=== PATIENT | female | born 1950 | race Caucasian/White ===

== ENCOUNTER 2019-06-04 08:30 | Emergency (ER) | payer MEDICARE, SELFPAY ==
--- NOTE | ~2019-06-04 | XR_ITS ---
XR chest 2V DATE: 06/04/2019 08:58 INDICATION: Dyspnea TECHNIQUE: PA and lateral views COMPARISON: 09/27/2018 2 view chest FINDINGS: Bilateral hyperinflation. No pulmonary infiltrate or consolidation, pleural effusion or pul monary vascular congestion or pneumothorax is detected. Normal heart size. Aortic calcification. No h ilar or mediastinal enlargement. Diffuse osteopenia. IMPRESSION: No active cardiopulmonary disease Reviewed, dictated and finalized at location A. MOTION ANALYST
[2019-06-04 08:33] VITALS: BP 151/109; PULSE 76; RESP 18; TEMP 36.3; O2SAT 100
--- NOTE | 2019-06-04 08:33 | ECG_ITS ---
Measurements Intervals [place] Rate: 72 P: 59 NH: 165 QRS: 27 QRSD: 93 T: 41 QT: 405 QTc: 444 Interpretive Statements SINUS RHYTHM NORMAL ECG Electronically Signed On 06-04-2019 11:24:58 [employer] by Fredy Adhikari D.O.
--- NOTE | 2019-06-04 08:35 | ED.DIZZY ---
HPI - Dizziness General Chief Complaint: Dizziness Stated Complaint: cant breath, im dizzy Time Seen by Provider: 06/04/19 08:35 Source: patient Mode of arrival: ambulatory Limitations: no limitations History of Present Illness HPI Narrative: A 69 y/o female presents to the ED with c/o dizziness. Pt states that at 0300 the dizziness woke her up and has been constant since. Pt adds that she is also SOB and is not getting blood flow to her head. She describes the dizziness as a lightheadedness and near-syncope, but denies a spinning sensation. Pt does not note any aggravating or alleviating factors for the dizziness. Pt reports intermittent cough, anxiety, and night sweats, but denies CP, fever, BLE edema, N/V, and chills. She states that she is panicky due to the SOB. Pt notes the SOB is aggravated when she is lying down flat. She has a PMHx of anxiety and takes Paxil daily. Pt denies any sick contacts or any recent car or air travel. Dr. Fernández is her PCP. She has a PMHx of hyperlipidemia, GERD, and section. MD elicited complaint: dizziness Pertinent past history: other (Anxiety) Onset (ago): hour(s) (5.5) Timing: awoke with symptoms Description: lightheadedness and near-syncope Exacerbating factors: nothing Relieving factors: nothing Associated symptoms: shortness of breath and other (Intermittent cough, anxiety, night sweats) Related Data Home Medications Medication Instructions Recorded Confirmed atenolol 100 mg tablet 100 mg PO DAILY tablet 03/07/19 atorvastatin 80 mg tablet 80 mg PO DAILY tablet 03/07/19 paroxetine HCl 20 mg tablet mg PO 03/07/19 Allergies Allergy/AdvReac Type Severity Reaction Status Date / Time No Known Allergies Allergy Verified 06/04/19 08:35 Review of Systems Review of Systems: All systems reviewed & are unremarkable except as noted in HPI and below Constitutional: Constitutional: Denies chills, Denies fever(s) and Reports night sweats Cardiovascular: Cardiovascular: Denies chest pain and Denies leg edema Respiratory: Respiratory: Reports cough (Intermittent) and Reports dyspnea Gastrointestinal: Gastrointestinal: Denies nausea and Denies vomiting Neurologic: Reports dizziness Psychiatric: Psychiatric: Reports anxiety PMFSH Past Medical History Medical History (Updated 06/04/19 @ 11:38 by Bruna Oleary MD) Anxiety GERD (gastroesophageal reflux disease) HTN (hypertension) Hyperlipidemia Verruca vulgaris right forearm Surgical History Surgical History (Updated 06/04/19 @ 08:43 by Latisha Rabago) History of section Family History Family History Father Cerebrovascular accident Mother Family history of chronic obstructive pulmonary disease Sibling Patient's sister is Social History Social History Smoking status: Never smoker Second hand tobacco smoke exposure: Yes Alcohol intake: current Gender identity (if verbalized by the patient): Female Exam Const: General: cooperative, no acute distress and alert Nutritional Appearance: well nourished Orientation/consciousness: patient oriented x3 Limitations: no limitations HENMT: Mouth: Yes lip normal and Yes moist mucous membranes Resp: Effort & Inspection: normal respiratory effort Auscultation: clear to auscultation bilaterally Cardio: Rate: regular rate Rhythm: regular rhythm Heart sounds: no murmurs Peripheral pulses: dorsalis pedis present bilateral 2+ GI: GI Palp: Yes Soft to palpation and No Tenderness to palpation present (GI) Auscultation: normal bowel sounds Skin: General skin exam: normal color Neuro: General: patient oriented x3 Cognition (Neuro): normal cognition Speech: normal speech Extrem: General: normal to inspection, full ROM and no clubbing, cyanosis or edema Psych: Mental Status: mental status grossly normal Affect: Anxious aff
[2019-06-04] MEDS: LORAZEPAM INJ 2 MG/ML VIAL 1 MG IV PUSH (08:53)
[2019-06-04 09:03] VITALS: BP 163/76; PULSE 68; RESP 18; O2SAT 95
[2019-06-04 09:08] LABS: Basophils Absolute Auto 0.1 K/mm3 (0.0-0.1); Basophils Percent Auto 0.6 % (0.2-1.2); Eosinophils Absolute Auto 0.7 K/mm3 (0-0.3); Eosinophils Percent Auto 8.1 % (0-4.4); Hemoglobin 13.5 g/dL (12.0-15.0); Immature Granulocyte Absolute 0.02 K/mm3 (0.00-0.031); Immature Granulocyte Percent A 0.2 % (0-0.5); Lymphocytes Absolute Auto 2.88 K/mm3 (0.9-3.2); Lymphocytes Percent Auto 35.7 % (18.3-44.2); Mean Corpuscular HGB Conc 32.1 g/dl (32-36); Mean Corpuscular Hemoglobin 27.7 pg (26-34); Mean Corpuscular Volume 86.2 fl (80-100); Mean Platelet Volume 11.3 fl (7.4-10.4); Monocytes Absolute Auto 0.7 K/mm3 (0.1-0.6); Monocytes Percent Auto 8.7 % (2.6-8.5); Neutrophils Absolute Auto 3.8 K/mm3 (1.3-6.7); Neutrophils Percent Auto 46.7 % (45.5-73.1); Platelet Count Result 218 k/mm3 (150-375); Red Blood Count 4.87 M/mm3 (4.2-5.4); Red Cell Distribution Width 14.4 % (11.5-14.5); White Blood Count 8.1 K/mm3 (4.5-10.0)
[2019-06-04 09:18] LABS: D Dimer 0.32 ug/mL (<0.48)
[2019-06-04 09:26] VITALS: BP 138/83; PULSE 68; RESP 18; O2SAT 95
[2019-06-04 09:36] LABS: Alanine Aminotransferase 24 U/L (4-35); Albumin Level 4.8 g/dL (3.5-5.1); Alkaline Phosphatase 116 U/L (38-126); Aspartate Amino Transferase 29 U/L (14-36); Bilirubin,Total 0.7 mg/dL (0.2-1.3); Blood Urea Nitrogen 18 mg/dL (7-17); Calcium 9.7 mg/dL (8.4-10.2); Carbon Dioxide 26 mmol/L (22-30); Chloride 100 mmol/L (98-107); Estimated CRCL calculation 76 ml/min; Estimated Glomerular Filt Rate > 60; Glucose 94 mg/dL (65-105); Potassium 3.9 mmol/L (3.4-5.0); Sodium 141 mmol/L (137-145)
[2019-06-04 09:45] LABS: NT Pro B Type Natriuretic Pept 239 PG/ML (5-100); Troponin I < 0.012 ng/mL (0.000-0.034)
[2019-06-04 10:11] VITALS: BP 149/92; PULSE 63; RESP 18; O2SAT 98
== END 2019-06-04 11:45 | disposition home or self-care (01) ==
PROVIDERS: Emergency Provider Emergency Medicine; PCP Internal Medicine
DX: F41.9 Anxiety disorder, unspecified (principal); K21.9 Gastro-esophageal reflux disease without esophagitis; E78.5 Hyperlipidemia, unspecified; I10 Essential (primary) hypertension
CPT/HCPCS: 36415; 71046; 80053; 83880; 84484; 85025; 85380; 93005; 96374; 99284; J2060

== ENCOUNTER 2019-11-29 14:48 | Outpatient (CLI) | payer MEDICARE, SELFPAY ==
--- NOTE | ~2019-11-29 | MM_ITS ---
EXAMINATION: MM screening [place] BI w mitra HISTORY: Screening TECHNIQUE: Craniocaudal and mediolateral oblique 3-D tomosynthesis images were obtained and synthetic 2-D images were generated. CAD analysis was submitted and interpreted. COMPARISON: Comparison to multiple prior studies sequentially, with oldest reviewed study dated 08/2013. BREAST PARENCHYMAL COMPOSITION: There are scattered areas of fibroglandular density. FINDINGS: There is no evidence of suspicious mass, calcification, or architectural distortion to sugg est malignancy in either breast. There has been no suspicious interval change. IMPRESSION: 1. No mammographic evidence of malignancy. 2. Recommend routine screening mammography in one year. BI-RADS Category 1: Negative Reviewed, dictated and finalized at location A.
== END 2019-11-29 14:49 | disposition home or self-care (01) ==
PROVIDERS: PCP Internal Medicine; Visit Provider Obstetrics & Gynecology
DX: Z12.31 Encounter for screening mammogram for malignant neoplasm of breast (principal)
CPT/HCPCS: 77063; 77067

== ENCOUNTER 2020-02-07 08:53 | Outpatient (CLI) | payer MEDICARE, SELFPAY ==
--- NOTE | 2020-03-11 11:57 | WPDHOMESLEEP ---
Sleep Study - Home Unattended Date of Study: 02/07/20 Ordering Provider: Brayden Ott PA-C Interpreting Physician: Janet Menchaca MD Home Sleep Study Type: Apnea Link Air Height: 1.65 m Weight: 79.379 kg Body Mass Index: 29.1 [place]: 10 Reason for Sleep Study Hypersomnia Sleep History Rose Mary Mitchell is a 69 yo female with loud snoring, witnessed apneas and poor quality sleep. She frequently snores loudly enough that others complain about it. She does not awaken at night with heartburn, belching or coughing. She occasionally awakens from sleep feeling short of breath. She frequently has trouble sleeping with a cold, frequently wakes up gasping for breath at night constantly has breathing problems reported to her by others. She frequently sweats excessively at night. She frequently notices her heart pounding or beating irregularly at night and she frequently falls asleep during the day, occasionally involuntarily occasionally while driving. She does not have daytime difficulties due to excessive sleepiness. She does not feel paralyzed on waking or falling asleep and does not have vivid dreamlike scenes upon awakening or falling asleep. She is never afraid to go to sleep. She rarely has nightmares. She frequently remembers her dreams. She does not have racing thoughts, feelings of sadness or depression. She frequently feels anxiety. She does not have muscular tension. She occasionally notices parts of her body jerking. She does not kick at night, does not have crawling or aching feelings in her legs or leg pain during the night. She denies morning jaw pain. She does not grind her teeth during sleep. She occasionally has bothered by pain during the day. She is not awakened by pain at night or does not wake up feeling stiff in the morning with sore achy muscles are pain in the neck and spine joints. She has fatigue, headaches, and says that it is difficult for her to relax. She goes to bed at 12 midnight taking 2-3 hours to fall asleep, typically waking twice at night. She tries to go back to sleep but sometimes it is difficult For her to return to sleep again. She wakes up at 9:00 a.m. Weekend schedule is the same. She does take naps. Short naps are not refreshing. She is drowsy in the morning for 2 hours or longer. She feels better in the evening compared other times of day. Habits: never smoked tobacco. She uses caffeine and drinks alcohol, 3 Margaritas, on Fridays. No recreational drugs. She did not give numerical responses for the [place], however answered yes to 5 out of 8 questions; this translates to 10 ESS. [facility] Past Medical History Medical History (Updated 03/11/20 @ 12:19 by Janet Menchaca MD) Anxiety GERD (gastroesophageal reflux disease) HTN (hypertension) Hyperlipidemia Verruca vulgaris right forearm Surgical History Surgical History History of section Family History Family History Father Cerebrovascular accident Mother Family history of chronic obstructive pulmonary disease Sibling Patient's sister is Social History Social History Smoking status: Never smoker Second hand tobacco smoke exposure: No Alcohol intake: current Substance use: never Gender identity (if verbalized by the patient): Female Medications Home Medications Medication Instructions Recorded Confirmed Type atenolol 100 mg tablet 100 mg PO DAILY #90 tablet 02/14/20 02/14/20 Rx atorvastatin 80 mg tablet 80 mg PO DAILY #90 tablet 02/14/20 02/14/20 Rx lorazepam 0.5 mg tablet 0.5 mg PO BID PRN #30 tablet 02/14/20 02/14/20 Rx omeprazole 20 mg capsule,delayed 20 mg PO DAILY #90 cap 02/14/20 02/14/20 Rx release paroxetine HCl 40 mg tablet 40 mg PO DAILY #90 tablet 02/14/20 02/14/20 Rx Sleep Procedure T
[2020-03-11 12:12] VITALS: BMI 29.1
== END 2020-02-07 08:54 | disposition home or self-care (01) ==
LOC: ANHCSM 08:57
PROVIDERS: PCP Internal Medicine; Visit Provider Physician Assistant
DX: R06.00 Dyspnea, unspecified (principal); I10 Essential (primary) hypertension; E78.5 Hyperlipidemia, unspecified; K21.9 Gastro-esophageal reflux disease without esophagitis; R53.83 Other fatigue
CPT/HCPCS: 95806

== ENCOUNTER 2020-04-12 02:00 | Outpatient (CLI) | payer MEDICARE, SELFPAY ==
[2020-04-12 20:00] LABS: SARS-CoV-2 RNA PCR Negative
== END 2020-04-12 02:01 | disposition home or self-care (01) ==
LOC: ANHCOVIDDT 02:00
PROVIDERS: PCP Internal Medicine; Visit Provider Internal Medicine Critical Care Medicine
DX: Z01.812 Encounter for preprocedural laboratory examination (principal); Z20.828 Contact with and (suspected) exposure to other viral communicable diseases
CPT/HCPCS: 87635; C9803; U0003

== ENCOUNTER 2021-02-06 10:34 | Outpatient (CLI) | payer MEDICARE, SELFPAY ==
--- NOTE | ~2021-02-06 | XR_ITS ---
XR chest 2V DATE: 02/06/2021 10:54 INDICATION: Dyspnea for one year. History of hypertension. TECHNIQUE: PA and lateral views COMPARISON: June 04, 2019 PA and lateral chest FINDINGS: Normal heart size. Aortic calcification and mild unfolding. No hilar or mediastinal enlarge ment. No pulmonary infiltrate or consolidation, pleural effusion or pulmonary vascular congestion or pneumo thorax is detected. Diffuse osteopenia. Mild degenerative change of the thoracic spine. IMPRESSION: No active cardiopulmonary disease Aortic atherosclerosis Osteopenia Reviewed, dictated and finalized at location B.
== END 2021-02-06 10:35 | disposition home or self-care (01) ==
LOC: ANHIMG 10:38
PROVIDERS: PCP Internal Medicine; Visit Provider Internal Medicine Critical Care Medicine
DX: R06.00 Dyspnea, unspecified (principal); I70.0 Atherosclerosis of aorta; M47.814 Spondylosis without myelopathy or radiculopathy, thoracic region
CPT/HCPCS: 71046

== ENCOUNTER 2021-07-25 14:29 | Outpatient (CLI) | payer MEDICARE, SELFPAY ==
--- NOTE | ~2021-07-25 | CT_ITS ---
EXAMINATION: CT brain wo con EXAM DATE: 07/25/2021 15:04 INDICATION: Alzheimer's . TECHNIQUE: Spiral CT of the head was performed without contrast. Axial, coronal and sagittal images were reviewed. The dose-length product (DLP) for this examination was 605.33 mGy-cm. The exposure w as tailored according to patient size, and iterative reconstruction (ASIR) was used as additional dos e reduction technique. There is no prior study for comparison. FINDINGS: There is no acute intraparenchymal hemorrhage. No evidence of intraparenchymal brain mass lesion. No evidence of acute infarction. There is no mass effect or midline shift. Mild microangiop athy and cerebral atrophy. The ventricles are normal in size. There are no extra-axial collections. There are no acute calvarial fractures. The orbits are unremarkable. Soft tissue is unremarkable. The visualized sinuses and mastoid air cells are well aerated. IMPRESSION: Mild age-related findings. Reviewed, dictated and finalized at location B. IMPRESSION: Mild age-related findings.
== END 2021-07-25 14:30 | disposition home or self-care (01) ==
PROVIDERS: PCP Internal Medicine
DX: G30.0 Alzheimer's disease with early onset (principal)
CPT/HCPCS: 70450

== ENCOUNTER 2024-04-03 10:20 | Observation (INO) | payer MEDICARE, SELFPAY ==
--- NOTE | ~2024-04-03 | CT_ITS ---
CT brain wo con Ordering provider: Keegan Cordova MD History: 74 years Female with . AMS . Comparison: July 25, 2021 Technique: CT of the head without contrast. Radiation reduction technique utilized.The dose-length pr oduct was 605.33 mGy-cm. FINDINGS: BRAIN PARENCHYMA AND CSF SPACES: Mild leukoaraiosis and diffuse cortical atrophy. Mild atheromatous d isease. No midline shift, mass effect or hemorrhage. The brain parenchyma and CSF spaces are otherwi se normal. VISUALIZED PARANASAL SINUSES: Well aerated. MASTOIDS: Well aerated. BONES: The bones appear intact. SOFT TISSUES: Visualized nasopharynx is normal. Superficial soft tissues are normal. IMPRESSION: No acute intracranial findings. Reviewed, dictated and finalized at location A. ECT SAFETY MANAGER
[2024-04-03 10:19] VITALS: BP 137/70; PULSE 65; RESP 12; TEMP 36.4; O2SAT 98
[2024-04-03 10:53] LABS: Basophils Percent Auto 0.5 % (0.2-1.2); Eosinophils Absolute Auto 0.6 K/mm3 (0-0.3); Eosinophils Percent Auto 9.1 % (0-4.4); Hematocrit 37.8 % (37.0-47.0); Hemoglobin 11.9 g/dL (12.0-15.0); Immature Granulocyte Absolute 0.02 K/mm3 (0.00-0.031); Immature Granulocyte Percent A 0.3 % (0-0.5); Lymphocytes Absolute Auto 1.21 K/mm3 (0.9-3.2); Lymphocytes Percent Auto 19.7 % (18.3-44.2); Mean Corpuscular HGB Conc 31.5 g/dl (32-36); Mean Corpuscular Hemoglobin 27.4 pg (26-34); Mean Corpuscular Volume 86.9 fl (80-100); Mean Platelet Volume 10.8 fl (7.4-10.4); Monocytes Absolute Auto 0.5 K/mm3 (0.1-0.6); Monocytes Percent Auto 7.3 % (2.6-8.5); Neutrophils Absolute Auto 3.9 K/mm3 (1.3-6.7); Neutrophils Percent Auto 63.1 % (45.5-73.1); Platelet Count Result 187 k/mm3 (150-375); Red Blood Count 4.35 M/mm3 (4.2-5.4); Red Cell Distribution Width 15.5 % (11.5-14.5); White Blood Count 6.2 K/mm3 (4.5-10.0)
[2024-04-03 11:03] LABS: Alanine Aminotransferase 14 U/L (6-35); Albumin Level 3.9 g/dL (3.5-5.1); Alkaline Phosphatase 118 U/L (38-126); Anion Gap 6 mmol/L (4-12); Aspartate Amino Transferase 21 U/L (14-36); Bilirubin,Total 0.7 mg/dL (0.2-1.3); Blood Urea Nitrogen 20 mg/dL (7-17); Calcium 9.1 mg/dL (8.4-10.2); Carbon Dioxide 27 mmol/L (22-30); Chloride 106 mmol/L (98-107); Estimated CRCL calculation 46 ml/min; Estimated Glomerular Filt Rate > 60; Glucose 91 mg/dL (65-110); Potassium 3.4 mmol/L (3.4-5.0); Sodium 139 mmol/L (137-145)
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
[2024-04-03 11:24] VITALS: BP 160/82; PULSE 81; RESP 18; O2SAT 97
[2024-04-03 11:31] LABS: Add Urine Microscopic? YES; Appearance Urine Clear (Clear); Bacteria Urine 4+ /hpf; Bilirubin Urine Negative (Negative); Blood Urine Negative (Negative); Color Urine Yellow (Yellow); Glucose Urine UA Negative (Negative); Ketones Urine Trace mg/dL (Negative); Leukocyte Esterase Ur Negative LEU/UL (Negative); Nitrate Urine Positive (Negative); Non Pathogenic Casts 0-2; Protein Urine Negative (Negative); RBC Urine 0-2 /hpf (0-2); Specific Grav Ur 1.016 (1.001-1.035); Squamous Epithelial Cell Urine None Seen /hpf (Few); WBC Urine 0-5 /hpf (0-3); pH Urine 6.5 (5.0-9.0)
[2024-04-03] MEDS: LORazepam INJ (*CRX) 2 MG/ML VIAL 0.5 MG IV PUSH ×4 (11:42→20:00)
[2024-04-03 11:45] VITALS: BP 163/80; PULSE 73; RESP 13; O2SAT 98
[2024-04-03 13:09] VITALS: BP 158/82; PULSE 90; RESP 13; O2SAT 99
--- NOTE | 2024-04-03 14:15 | PC.NURSE ---
Pt's bed alarm started going off and RN entered room discovered pt removing her IV and trying to get out of bed. Upon entering room pt stood up and urinated on floor. RN cleaned and changed pt and got her back into bed. Floor mopped. Sitter at bedside and IV reinserted
[2024-04-03 15:00] VITALS: BP 143/72; PULSE 84; RESP 18; TEMP 36.4; O2SAT 99
[2024-04-03 15:13] VITALS: BMI 17.5
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
--- NOTE | 2024-04-03 18:00 | ADMGEN ---
This patient, Rose Mary Mitchell, was admitted to [facility] Surg Room 330-02. Patient/family oriented to hospital policies and general routines including ID bracelet, bed and alarms, visiting hours, pain management, procedures, bathroom and other care routines, personal items, smoking policy, room service/diet, and visiting hours. Information on how to activate the Rapid Response Team has been discussed. Patient/Family are encouraged to report perceived risks to care and to ask questions if they do not understand what they are told or what they should do.
[2024-04-03] MEDS: ACETAMINOPHEN 325 MG TABLET 650 MG PO (20:06)
--- NOTE | 2024-04-03 23:22 | PC.NURSE ---
Son Mando Mitchell called and said to call him with any questions/concerns since patient is also currently a patient too. [phone]
[2024-04-04 02:30] VITALS: BP 111/60; PULSE 68; RESP 18; TEMP 36.7; O2SAT 95
[2024-04-04] MEDS: SODIUM CHLORIDE 0.9% IV 1,000 ML 100 ML IV CONT (02:37)
[2024-04-04] MEDS: LORazepam INJ (*CRX) 2 MG/ML VIAL 0.5 MG IV PUSH ×4 (02:37→21:03)
[2024-04-04 06:00] VITALS: BP 135/78; PULSE 75; RESP 16; TEMP 36.8; O2SAT 97
[2024-04-04 07:22] LABS: Hematocrit 36.9 % (37.0-47.0); Hemoglobin 11.8 g/dL (12.0-15.0); Mean Corpuscular Volume 87.4 fl (80-100); Mean Platelet Volume 11.3 fl (7.4-10.4); Platelet Count Result 211 k/mm3 (150-375); Red Blood Count 4.22 M/mm3 (4.2-5.4); Red Cell Distribution Width 15.4 % (11.5-14.5); White Blood Count 6.8 K/mm3 (4.5-10.0)
[2024-04-04 08:05] LABS: Anion Gap 3 mmol/L (4-12); Blood Urea Nitrogen 15 mg/dL (7-17); Calcium 8.9 mg/dL (8.4-10.2); Carbon Dioxide 24 mmol/L (22-30); Chloride 111 mmol/L (98-107); Estimated CRCL calculation 53 ml/min; Estimated Glomerular Filt Rate > 60; Glucose 65 mg/dL (65-110); Magnesium 2.1 mg/dL (1.6-2.3); Potassium 3.6 mmol/L (3.4-5.0); Sodium 138 mmol/L (137-145)
[2024-04-04] MEDS: MEMANTINE 10 MG TABLET PO ×2 (08:42→21:03)
--- NOTE | 2024-04-04 13:01 | P.PNIM_ITS ---
Progress Note: A&P Assessment and Plan (1) Dementia with behavioral disturbance: Code(s): F03.918 - Unspecified dementia, unspecified severity, with other behavioral disturbance Status: Chronic Assessment and Plan: * Pt with chronic dx of dementia. * Safety precautions in place * High fall risk * Continue meds * Monitor labs and VS (2) Bacteriuria: Code(s): R82.71 - Bacteriuria Status: Acute Assessment and Plan: * Previous UTI grew out E.coli with pansensitivity as recent as 12/2023. Pt is on Rocephin currently and will continue it Q24 hours at this time. * Await Cx and Sensitivity. * Monitor VS and labs and trend. Time Spent With Patient Time with patient: 15 - 25 minutes Subjective Date/time seen: 04/04/24 13:01 Interval history: I examined this pt at the [facility] nursing station where she is with a 1:1 sitter due to her degree of dementia and confusion. She is a high fall risk and she is not cooperative. She is sitting with another person for her safety. She is alert and oriented x0. Currently coloring, she does not appear to be in any acute distress, but I cannot obtain any meaningful information. Review of Systems Review of Systems: ROS unobtainable: Yes unobtainable due to medical condition (Dementia) Exam Narrative: General: Chronically ill-appearing female sitting at the nurses station at this time in no acute distress. HEENT: PERRL, EOMI. Subconjunctival hemorrhage of the lateral left eye Sclera anicteric. Dry Mucous membranes. Neck: Supple. No midline vertebral tenderness. Respiratory: Respirations are nonlabored. Lung sounds are diminished due to poor effort but otherwise clear to auscultation. Cardiovascular: Regular rate and rhythm with S1-S2. Gastrointestinal: Abdomen is soft, nontender, and nondistended with positive bowel sounds. Skin: Warm and dry. Old bruises on the chest, left arm, and otoole/draw. Extremities: No cyanosis, clubbing, or edema. Radial and pedal pulses intact. Neurological: Alert without any meaningful information exchanged. She repeats everything that I say to her. She does not appear to have any focal deficits. Psychiatric: Confused and cries easily. Objective Data Vital Signs Vital Signs: Vital Signs - 24 hr 04/03/24 13:09 04/03/24 15:00 04/03/24 20:00 Temperature 97.5 F L Pulse Rate 90 84 Respiratory Rate 13 18 Blood Pressure 158/82 H 143/72 H Pulse Oximetry 99 99 Oxygen Delivery Room Air 04/04/24 02:30 04/04/24 06:00 04/04/24 09:58 Temperature 98.1 F 98.2 F Pulse Rate 68 75 Respiratory Rate 18 16 Blood Pressure 111/60 135/78 Pulse Oximetry 95 97 Oxygen Delivery Room Air Intake/Output Intake/Output: Intake & Output 04/01/24 04/02/24 04/03/24 04/04/24 23:59 23:59 23:59 23:59 Intake Total 600 118 Output Total 100 Balance 500 118 Meds/Results Medications: Active Medications Generic Name Dose Route Start Last Admin Trade Name Freq PRN Reason Stop Dose Admin Acetaminophen 650 mg 04/03/24 13:06 04/03/24 20:06 Acetaminophen 325 Mg Tablet PO 650 mg Q4H PRN Administration Mild Pain (1-3) or Fever Hydrocodone Bitart/Acetaminophen 1 tab 04/03/24 13:06 Hydrocodone/Acetaminophen (*Crx) 5-325 Mg Tablet PO Q4H PRN Pain Rated 4-6 Ceftriaxone Sodium 1 gm in 50 mls @ 100 mls/hr 04/05/24 12:00 Rocephin 1 Gm/Ns 50 Ml IVPB Q24H GEOFFREY Lorazepam 0.5 mg 04/03/24 13:07 04/04/24 08:39 Lorazepam Inj (*Crx) 2 Mg/Ml Vial IV PUSH 0.5 mg Q6H PRN Administration Anxiety Melatonin 10 mg 04/03/24 21:26 Melatonin 5 Mg Tablet PO HS PRN Insomnia Memantine 10 mg 04/03/24 21:30 04/04/24 08:42 Memantine 10 Mg Tablet PO 10 mg Q12HR GEOFFREY Administration Ondansetron HCl 4 mg 04/03/24 13:06 Ondansetron Inj 4 Mg/2 Ml Vial IV PUSH Q4H PRN Nausea Radiology Results: ITS Impressions Head CT 04/03/24 13:33 IMPRESSION: No acute intracranial findings. Labs Labs: Laboratory Results - last 24 hr 04/04/24 04/04/24 06:19 06:23 WBC 6.8 RBC 4.22 Hgb 11.8 L Hct 36.9 L MCV 87.4 MCH 28.0 MCHC 32.0 RDW 15.4 H Plt Count 211 MPV 11.3 H Sodium 138 Potassium 3.6 Chloride 111 H Carbon Dioxide 24 Anion Gap 3 L BUN 15 D Creatinine 0.60 L Estim Creat Clear Calc 53 Estimated GFR > 60 Glucose 65 Calcium 8.9 Magnesium 2.1 TSH (Reflex) 1.560 Quality If No VTE Prophylaxis Answer both mechanical and pharmacologic: Reason no mechanical VTE proph: patient/caregiver refusal Reason no pharmacologic proph: patient/caregiver refusal
[2024-04-04 13:39] VITALS: BMI 17.6
[2024-04-04 14:00] VITALS: BP 130/70; PULSE 103; RESP 22; TEMP 36.5; O2SAT 95
[2024-04-04 19:22] VITALS: BP 140/70; PULSE 103; RESP 17; TEMP 37.3; O2SAT 95
[2024-04-04] MEDS: MELATONIN 5 MG TABLET 10 MG PO (21:03)
[2024-04-05 05:35] VITALS: BP 114/65; PULSE 81; RESP 20; TEMP 36.5; O2SAT 97
[2024-04-05 07:21] LABS: Basophils Absolute Auto 0.1 K/mm3 (0.0-0.1); Basophils Percent Auto 0.6 % (0.2-1.2); Eosinophils Absolute Auto 0.9 K/mm3 (0-0.3); Eosinophils Percent Auto 10.7 % (0-4.4); Hematocrit 38.4 % (37.0-47.0); Immature Granulocyte Absolute 0.02 K/mm3 (0.00-0.031); Immature Granulocyte Percent A 0.2 % (0-0.5); Lymphocytes Percent Auto 25.6 % (18.3-44.2); Mean Corpuscular HGB Conc 31.3 g/dl (32-36); Mean Corpuscular Hemoglobin 27.5 pg (26-34); Mean Corpuscular Volume 87.9 fl (80-100); Monocytes Absolute Auto 0.7 K/mm3 (0.1-0.6); Monocytes Percent Auto 8.1 % (2.6-8.5); Neutrophils Absolute Auto 4.7 K/mm3 (1.3-6.7); Neutrophils Percent Auto 54.8 % (45.5-73.1); Platelet Count Result 212 k/mm3 (150-375); Red Blood Count 4.37 M/mm3 (4.2-5.4); Red Cell Distribution Width 15.6 % (11.5-14.5); White Blood Count 8.6 K/mm3 (4.5-10.0)
[2024-04-05 07:46] LABS: Alanine Aminotransferase 12 U/L (6-35); Albumin Level 3.5 g/dL (3.5-5.1); Alkaline Phosphatase 103 U/L (38-126); Anion Gap -1 mmol/L (4-12); Aspartate Amino Transferase 16 U/L (14-36); Bilirubin,Total 0.4 mg/dL (0.2-1.3); Blood Urea Nitrogen 18 mg/dL (7-17); Calcium 9.1 mg/dL (8.4-10.2); Carbon Dioxide 27 mmol/L (22-30); Chloride 110 mmol/L (98-107); Estimated CRCL calculation 49 ml/min; Estimated Glomerular Filt Rate > 60; Glucose 83 mg/dL (65-110); Potassium 4.4 mmol/L (3.4-5.0); Sodium 136 mmol/L (137-145)
[2024-04-05] MEDS: MEMANTINE 10 MG TABLET PO ×2 (09:39→20:53)
[2024-04-05 10:04] VITALS: O2SAT 98
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
[2024-04-05 14:00] VITALS: BP 169/83; PULSE 99; RESP 18; TEMP 36.4; O2SAT 97
[2024-04-05] MEDS: LORazepam INJ (*CRX) 2 MG/ML VIAL 0.5 MG IV PUSH (17:47)
[2024-04-05] MEDS: HYDROcodone/acetaminophen (*CRX) 5-325 MG TABLET 1 TAB PO (20:53)
[2024-04-05] MEDS: MELATONIN 5 MG TABLET 10 MG PO (20:53)
[2024-04-05 21:31] VITALS: BP 166/79; PULSE 101; RESP 18; TEMP 36.3; O2SAT 98
[2024-04-06 04:18] VITALS: BP 155/73; PULSE 86; RESP 18; TEMP 36.4; O2SAT 97
[2024-04-06 07:38] LABS: Basophils Percent Auto 0.5 % (0.2-1.2); Eosinophils Percent Auto 11.8 % (0-4.4); Hemoglobin 12.4 g/dL (12.0-15.0); Immature Granulocyte Absolute 0.03 K/mm3 (0.00-0.031); Immature Granulocyte Percent A 0.3 % (0-0.5); Lymphocytes Absolute Auto 1.98 K/mm3 (0.9-3.2); Mean Corpuscular HGB Conc 31.8 g/dl (32-36); Mean Platelet Volume 11.4 fl (7.4-10.4); Monocytes Absolute Auto 0.7 K/mm3 (0.1-0.6); Monocytes Percent Auto 7.9 % (2.6-8.5); Neutrophils Absolute Auto 4.9 K/mm3 (1.3-6.7); Neutrophils Percent Auto 56.5 % (45.5-73.1); Platelet Count Result 214 k/mm3 (150-375); Red Blood Count 4.43 M/mm3 (4.2-5.4); Red Cell Distribution Width 15.6 % (11.5-14.5); White Blood Count 8.6 K/mm3 (4.5-10.0)
[2024-04-06 07:58] LABS: Alanine Aminotransferase 13 U/L (6-35); Albumin Level 3.7 g/dL (3.5-5.1); Alkaline Phosphatase 91 U/L (38-126); Anion Gap 5 mmol/L (4-12); Aspartate Amino Transferase 20 U/L (14-36); Bilirubin,Total 0.5 mg/dL (0.2-1.3); Blood Urea Nitrogen 18 mg/dL (7-17); Calcium 9.2 mg/dL (8.4-10.2); Carbon Dioxide 26 mmol/L (22-30); Chloride 108 mmol/L (98-107); Estimated CRCL calculation 49 ml/min; Estimated Glomerular Filt Rate > 60; Glucose 83 mg/dL (65-110); Potassium 4.3 mmol/L (3.4-5.0); Sodium 139 mmol/L (137-145)
[2024-04-06] MEDS: CEPHALEXIN 500 MG CAPSULE PO ×2 (09:18→22:00)
[2024-04-06] MEDS: MEMANTINE 10 MG TABLET PO ×2 (09:18→22:00)
--- NOTE | 2024-04-06 09:20 | P.PNIM_ITS ---
Progress Note: A&P Assessment and Plan (1) Dementia with behavioral disturbance: Code(s): F03.918 - Unspecified dementia, unspecified severity, with other behavioral disturbance Status: Chronic Assessment and Plan: Pt with chronic dx of dementia. * Safety precautions in place * High fall risk * Continue meds * Monitor labs and VS * Care coordination is following along and will be reaching out to adult sons today to determine their comfort level in discharging back to home given the pt's exam showing bruising and patient's 's recent hospitalization as he was just discharged from IMU. (2) Acute UTI: Code(s): N39.0 - Urinary tract infection, site not specified Status: Acute Assessment and Plan: Patient is unable to give a history but frequent crying reported in notes. Urine culture 04/03 Ecoli pansensitive * Changed Ceftriaxone to Keflex, continue through 04/10 Time Spent With Patient Time: 56 minutes Subjective Date/time seen: 04/06/24 09:20 Interval history: Calm and pleasantly confused most of the day, but had an angry outburst and curs ed once, told the sitter to be quiet (Sitter said she hadn't spoken, so she was likely hearing the TV). Didn't remember that when I talked to her and said she's been in a good mood today. VSS, blood pressure slightly above goal but improved. CMP stable. 04/03 ecoli UTI pansensitive, changing to keflex Case management evaluating safety for home. CPS investigating Hospital Course: 74 year old hx dementia, aggression toward caregivers, admitted for evaluation of chest pain. Also treating for a UTI. Multiple bruises on admission, CPS investigating. Patient's also recently in the hospital. Planning for her to go home with them. Review of Systems Review of Systems: Unable to obtain given her underlying dementia. All systems reviewed & are unremarkable except as noted in HPI and below ROS unobtainable: Yes unobtainable due to medical condition (Dementia) Exam Narrative: General: Chronically ill-appearing female sitting at the bedside eating at this time in no acute distress. HEENT: PERRL, EOMI. Subconjunctival hemorrhage of the lateral left eye Sclera anicteric. Dry Mucous membranes. Neck: Supple. No midline vertebral tenderness. Respiratory: Respirations are nonlabored. Lung sounds are diminished due to poor effort but otherwise clear to auscultation. Cardiovascular: Regular rate and rhythm with S1-S2. Gastrointestinal: Abdomen is soft, nontender, and nondistended with positive bowel sounds. Skin: Warm and dry. Old bruises on the chest, left arm, and otoole/draw. Extremities: No cyanosis, clubbing, or edema. Radial and pedal pulses intact. Neurological: Alert without any meaningful information exchanged. She repeats everything that I say to her. She does not appear to have any focal deficits. Psychiatric: Confused and cries easily. Objective Data Vital Signs Vital Signs: Vital Signs - 24 hr 04/05/24 09:39 04/05/24 10:04 04/05/24 14:00 Temperature 97.6 F Pulse Rate 99 Respiratory Rate 18 Blood Pressure 169/83 H Pulse Oximetry 98 97 Oxygen Delivery Room Air Room Air 04/05/24 21:31 04/05/24 21:48 04/06/24 04:18 Temperature 97.3 F L 97.6 F Pulse Rate 101 H 86 Respiratory Rate 18 18 Blood Pressure 166/79 H 155/73 H Pulse Oximetry 98 97 Oxygen Delivery Room Air Intake/Output Intake/Output: Intake & Output 04/03/24 04/04/24 04/05/24 04/06/24 23:59 23:59 23:59 23:59 Intake Total 600 478 870 240 Output Total 100 0 Balance 500 478 870 240 Meds/Results Medications: Active Medications Generic Name Dose Route Start Last Admin Trade Name Freq PRN Reason Stop Dose Admin Acetaminophen 650 mg 04/03/24 13:06 04/03/24 20:06 Acetaminophen 325 Mg Tablet PO 650 mg Q4H PRN Administration Mild Pain (1-3) or Fever Hydrocodone Bitart/Acetaminophen 1 tab 04/03/24 13:06 04/05/24 20:53 Hydrocodone/Acetaminophen (*Crx) 5-325 Mg Tablet PO 1 tab Q4H PRN Administration Pain Rated 4-6 Cephalexin HCl 500 mg 04/06/24 09:00 04/06/24 09:18 Cephalexin 500 Mg Capsule PO 04/10/24 21:01 500 mg Q12HR GEOFFREY Administration Lorazepam 0.5 mg 04/03/24 13:07 04/05/24 17:47 Lorazepam Inj (*Crx) 2 Mg/Ml Vial IV PUSH 0.5 mg Q6H PRN Administration Anxiety Melatonin 10 mg 04/03/24 21:26 04/05/24 20:53 Melatonin 5 Mg Tablet PO 10 mg HS PRN Administration Insomnia Memantine 10 mg 04/03/24 21:30 04/06/24 09:18 Memantine 10 Mg Tablet PO 10 mg Q12HR GEOFFREY Administration Ondansetron HCl 4 mg 04/03/24 13:06 Ondansetron Inj 4 Mg/2 Ml Vial IV PUSH Q4H PRN Nausea Radiology Results: ITS Impressions Head CT 04/03/24 13:33 IMPRESSION: No acute intracranial findings. Labs Labs: Laboratory Results - last 24 hr 04/06/24 06:51 WBC 8.6 RBC 4.43 Hgb 12.4 Hct 39.0 MCV 88.0 MCH 28.0 MCHC 31.8 L RDW 15.6 H Plt Count 214 MPV 11.4 H Immature Gran % (Auto) 0.3 Neut % (Auto) 56.5 Lymph % (Auto) 23.0 [place] % (Auto) 7.9 Eos % (Auto) 11.8 H Baso % (Auto) 0.5 Lymph # (Auto) 1.98 [place] # (Auto) 0.7 H Eos # (Auto) 1.0 H Baso # (Auto) 0.0 Abs Immat Gran (auto) 0.03 Absolute Neuts (auto) 4.9 Absolute Nucleated RBC 0.000 Nucleated RBC % 0.0 Sodium 139 Potassium 4.3 Chloride 108 H Carbon Dioxide 26 Anion Gap 5 BUN 18 H Creatinine 0.70 Estim Creat Clear Calc 49 Estimated GFR > 60 Glucose 83 Calcium 9.2 Total Bilirubin 0.5 AST 20 ALT 13 Alkaline Phosphatase 91 Total Protein 7.0 Albumin 3.7 Quality VTE Prophylaxis VTE prophylaxis: mechanical ordered and pharmacologic ordered Hospitalist MIPS Advance Care Plan I have confirmed that the patient's Advanced Care Plan is present, code status is documented, or surrogate decision maker is listed in patient medical record.: Yes Medication Reconciliation I have utilized all available resources to obtain, update and review the patients current medications (includes all prescriptions, OTC, herbals, cannabis, and nutritional supplements).: Yes
[2024-04-06 14:00] VITALS: BP 150/72; PULSE 97; RESP 18; TEMP 36.2; O2SAT 98
[2024-04-06 19:37] VITALS: BP 130/60; PULSE 88; RESP 16; TEMP 36.3; O2SAT 96
[2024-04-07 06:00] VITALS: BP 152/82; PULSE 70; RESP 20; TEMP 36.8; O2SAT 97
[2024-04-07] MEDS: CEPHALEXIN 500 MG CAPSULE PO ×2 (09:16→16:31)
[2024-04-07] MEDS: MEMANTINE 10 MG TABLET PO (09:16)
[2024-04-07] MEDS: ENOXAPARIN 40 MG/0.4 ML SYRINGE SUB-Q (09:16)
[2024-04-07 14:00] VITALS: BP 122/64; PULSE 82; RESP 18; TEMP 37.1; O2SAT 97
--- NOTE | 2024-04-07 16:14 | P.DS_ITS ---
DS: Admitting Diagnosis Discharge Date 04/03/2024 Admitting Diagnosis UTI Dementia with agitation DS: Discharge Diagnosis Discharge Diagnosis (1) Dementia with agitation: Code(s): F03.911 - Unspecified dementia, unspecified severity, with agitation Status: Acute (2) Dementia with behavioral disturbance: Code(s): F03.918 - Unspecified dementia, unspecified severity, with other behavioral disturbance Status: Chronic (3) Acute UTI: Code(s): N39.0 - Urinary tract infection, site not specified Status: Acute DS: Summary Hospital Course Reason for hospitalization: Copied from [facility] 04/03: This is a 74-year-old female with dementia and history of behavioral disturbances, hypertension, hyperlipidemia, gastroesophageal reflux disease, and anxiety who presented to the emergency department via EMS from home for evaluation of increasing confusion. She is not a poor historian due to her underlying dementia and her provides the majority the following history. It sounds as though she has recently been started on quetiapine and despite taking that twice a day she continues to have aggressive behavior at times. She has been more aggressive recently and at times is physical with her . She has had similar episodes with urinary tract infection and he is concerned for the same today. She has multiple bruises in different stages of healing on her chest, arm, and jaw which was reportedly sustained in an unwitnessed fall sometime last week. She has not had any recent cold or flu symptoms, vomiting, or diarrhea. She has not voiced any complaints to myself or her . At the time my evaluation the patient does not have any complaints and she denies pain. In the ED: She was afebrile on arrival with stable vital signs. CMP and CBC were pretty unremarkable though BUN was a bit elevated at 20. Urinalysis was positive for trace ketones, nitrates, and 4+ bacteria. Head CT showed no acute findings. She was given a g of ceftriaxone and 0.5 mg lorazepam and she is being admitted in this setting for further evaluation and close monitoring. Hospital Course: Hospital Course: 74 year old hx dementia, aggression toward caregivers, admitted for evaluation of chest pain. Also treating for a UTI. Multiple bruises on admission, CPS investigating. Patient's also recently in the hospital. Planning for her to go home with them. Dementia with behavioral disturbance: Unspecified dementia, unspecified severity, with other behavioral disturbance Pt with chronic dx of dementia. Had outburts toward sitter/staff intermittently and challenging behaviors during admission. She had multiple bruises and CPS investigated, thought to be unintentional from restraining patient at home for her own safety. She was discharged back home with family. Acute UTI: Urinary tract infection, site not specified Patient is unable to give a history but frequent crying reported in notes. Urine culture 04/03 Ecoli pansensitive * Changed Ceftriaxone to Keflex, continued through 04/10 Status at Discharge Cognitive/behavioral status at discharge: A&Ox1 Calm with intermittent outbursts Time Spent with Patient Time attestation: Total time spent providing and/or coordinating discharge services: Exam Narrative: General: Chronically ill-appearing female sitting at the bedside eating at this time in no acute distress. HEENT: PERRL, EOMI. Subconjunctival hemorrhage of the lateral left eye Sclera anicteric. Dry Mucous membranes. Neck: Supple. No midline vertebral tenderness. Respiratory: Respirations are nonlabored. Lung sounds are diminished due to poor effort but otherwise clear to auscultation. Cardiovascular: Regular rate and rhythm with S1-S2. Gastrointestinal: Abdomen is soft, nontender, and nondistended with positive bowel sounds. Skin: Warm and dry. Old bruises on the chest, left arm, and otoole/draw. Extremities: No cyanosis, clubbing, or edema. Radial and pedal pulses intact. Neurological: Alert without any meaningful information exchanged. Calm but intermittent outbursts. She does not appear to have any focal deficits. Psychiatric: Confused and cries easily. Discharge Plan Discharge Attending physician on discharge: Julia Royal Consulting providers: Jil Aldana; Francisco Gatica Discharging Clinician: Julia Royal Anticipated Discharge Date/Time: 04/07/24 16:09 Patient Disposition: Home, Self-Care Activity: may shower Diet: regular Discharge Instructions: You were treated for a UTI during admission. Follow up with your PCP in 1-2 weeks Patient Instructions: Antibiotic Form, Dementia (GEN) Patient Language: Belarusian Stand Alone Forms: General Discharge Information Follow-up/Referrals: Jolene,Deangelo Coelho DO [Primary Care Provider] - Discharge Medications: Continued memantine 10 mg tablet 10 mg PO BID melatonin 10 mg Tablet 10 mg PO HS PRN (Reason: Insomnia) Date of admission: 04/03/24 13:06 Primary Care Provider: JoleneDeangelo Admitting Provider: Colby Blue Attending physician on admission: Julia Royal Condition: Stable Hospitalist MIPS Heart Failure (Exclusion) Patient has history of Heart Transplant or Left Ventricular Assistive Device?: No IF YES, STOP HERE Heart Failure (Qualifier) Patient has current or prior documentation of LVEF less than or equal to 40%, or mod/servere depressed LVSF?: No IF NO, STOP HERE
== END 2024-04-07 18:10 | disposition home or self-care (01) ==
LOC: ANHED 10:42 → ANH3MEDSUR 14:50
PROVIDERS: Nurse Practitioner Adult Health; Physician Assistant; Admitting Provider General Practice; Emergency Provider Emergency Medicine; PCP Internal Medicine; Visit Provider Nurse Practitioner Acute Care
DX: N39.0 Urinary tract infection, site not specified (principal); B96.20 Unspecified Escherichia coli [E. coli] as the cause of diseases classified elsewhere; F03.911 Unspecified dementia, unspecified severity, with agitation; F03.918 Unspecified dementia, unspecified severity, with other behavioral disturbance; T14.8XXA Other injury of unspecified body region, initial encounter; W19.XXXA Unspecified fall, initial encounter; K21.9 Gastro-esophageal reflux disease without esophagitis; I10 Essential (primary) hypertension; E78.5 Hyperlipidemia, unspecified; G47.33 Obstructive sleep apnea (adult) (pediatric); Z79.899 Other long term (current) drug therapy
CPT/HCPCS: 36415; 70450; 80048; 80053; 81001; 83735; 84443; 85025; 85027; 87077; 87086; 87186; 96365; 96372; 96374; 96375; 96376; 97162; 97530; 99285; A9270; G0378; J0696; J1650; J2060; J7030

== ENCOUNTER 2024-05-30 09:30 | Emergency (ER) | payer MEDICARE, SELFPAY ==
--- NOTE | ~2024-05-30 | CT_ITS ---
EXAMINATION: CT brain wo con DATE: 05/30/2024 11:01 INDICATION: Altered mental status TECHNIQUE: Computed tomography (CT) of the head was performed without intravenous contrast. Sagittal and coronal reconstructions were performed. The mA was adjusted according to patient size. Iterative reconstruction technique was employed. The dose-length product was 681.00 mGy-cm. COMPARISON: head CT dated 04/03/2024 FINDINGS: No acute intracranial hemorrhage, acute infarction or abnormal extra axial fluid collection. There is mild scattered white matter hypoattenuation consistent with chronic small vessel ischemic disease. S ymmetric prominence of the sulci consistent with mild to moderate age-appropriate diffuse cerebral vo lume loss. Ventricles are normal and symmetric. No mass/mass effect. Intracranial calcified cerebral atherosclerosis is noted. Changes of bilateral intraocular lens replacement. The orbits, paranasal s inuses and mastoid air cells are normal. IMPRESSION: 1. No acute intracranial process. 2. Age-related changes including mild to moderate diffuse volume loss and mild scattered white matter hypoattenuation consistent with chronic small vessel ischemic disease. Reviewed, dictated and finalized at location A. THAND TEACHER IMPRESSION: 1. No acute intracranial process. 2. Age-related changes including mild to moderate diffuse volume loss and mild scattered white matter hypoattenuation consistent with chronic small vessel isc hemic disease.
--- NOTE | ~2024-05-30 | XR_ITS ---
EXAMINATION: XR chest 2V DATE: 05/30/2024 11:09 INDICATION: Dementia TECHNIQUE: frontal and lateral views of the chest were obtained. COMPARISON: Chest radiograph dated 02/06/2021 FINDINGS: The lungs remain clear with no focal airspace opacities, pulmonary edema, pleural effusion or pneumot horax. The cardiomediastinal silhouette is normal. Mild thoracic spondylosis. IMPRESSION: 1. No acute cardiopulmonary disease. Reviewed, dictated and finalized at location A. ING HOME SOCIAL WORKER
[2024-05-30 09:31] VITALS: BP 136/84; PULSE 68; RESP 16; TEMP 36.6; O2SAT 100
--- NOTE | 2024-05-30 09:44 | ECG_ITS ---
Test Date: 2024-05-30 10:02:39 Measurements Intervals [place] Rate: 68 P: 34 CA: 116 QRS: -7 QRSD: 98 T: 32 QT: 395 QTc: 420 Interpretive Statements SINUS RHYTHM WITH SHORT CA INTERVAL CONSIDER INFERIOR INFARCT, AGE INDETERMINATE BASELINE ARTIFACT- I, II, III, AVR, AVL ABNORMAL ECG No previous ECG available for comparison Electronically Signed On 05-30-2024 10:08:02 LOGGING WORKER by Fredy Adhikari D.O.
--- NOTE | 2024-05-30 09:55 | ED_ITS ---
HPI - General Adult General Chief complaint: Unspecified Stated complaint: NH placement Time Seen by Provider: 05/30/24 09:44 History of Present Illness HPI narrative: Patient is a 74-year-old female who presents to the ER with altered mental status. Her son reports his father has been taking care of her at home, but now his father has been hospitalized for the past week. Patient's son reports he has been attempting to care for his mother during this time and he has noticed increased combativeness, aggressiveness, and agitation. Her son reports patient has a history of dementia for the past 5-7 years, but has gotten worse over the last 2 years. Patient's son reports patient needs care 16/11 in with her today placed in a senior living. Reports they went to patient's psychiatrist yesterday and they strongly advised her to come to the ER for placement. Related Data Home Medications ?Medication ?Instructions ?Recorded ?Confirmed ?Last Taken ?Type memantine 10 mg tablet 10 mg PO BID 02/24/23 04/03/24 Unknown History melatonin 10 mg tablet 10 mg PO HS PRN Insomnia 04/03/24 04/03/24 Unknown History Allergies Allergy/AdvReac Type Severity Reaction Status Date / Time No Known Allergies Allergy Verified 05/30/24 09:46 Review of Systems 2 Review of Systems: All systems reviewed & are unremarkable except as noted in HPI and below PMFSH Past Medical History Medical History Hypertension Gastroesophageal reflux disease Screening mammogram, encounter for Dementia Obstructive sleep apnea (01/2020) Hyperlipidemia Anxiety Verruca vulgaris right forearm Surgical History Surgical History History of neck surgery (~01/2005) gland removed History of endometrial biopsy (03/27/04) hscope emb History of stress incontinence procedure using tension free vaginal tape (~2001) History of section (~1980) Family History Family History Father Cerebrovascular accident Hypertension Mother Family history of chronic obstructive pulmonary disease Heart disease Sibling Patient's sister is Social History Social History Social History: Surrogate medical decision maker: Jaylan Mitchell, spouse. Code status: Full code. Smoking status: Never smoker Second hand tobacco smoke exposure: No Alcohol intake: never Drinks per week: 1 Substance use: never Substance use type: does not use Living arrangements: with family Additional living arrangements comments: The patient lives with her and their floyd retriever in [place]. Occupation/Education: retired Spiritual care concerns: No Exam 2 Narrative: GENERAL: Ill-appearing, poorly-nourished, non-toxic, in mild distress d/t confusion. HEAD: Normocephalic, atraumatic. NECK: Supple. No adenopathy, no masses. RESPIRATORY: Airway patent, respirations nonlabored. Clear to auscultation bilaterally, no rales, rhonchi, wheezing. CARDIOVASCULAR: Regular rate and rhythm without murmurs, rubs, or gallops. Peripheral pulses 2+ and equal bilaterally. ABDOMINAL: Soft, nontender, nondistended, no hepatosplenomegaly. Normoactive BS. MUSCULOSKELETAL: Moves all extremities. Strength/ROM intact without gross deformities. SKIN: Warm, dry, normal color. No rashes. NEURO: A&O X 1-2. Speech clear. No ataxic movements. PSYCHIATRIC: Tearful, agitated. Course Vital Signs Vital signs: Vital Signs Temperature 36.6 C 05/30/24 09:31 Pulse Rate 68 05/30/24 09:31 Respiratory Rate 16 05/30/24 09:31 Blood Pressure 136/84 05/30/24 09:31 Pulse Oximetry 100 05/30/24 09:31 Temperature 36.6 C 05/30/24 09:31 Pulse Rate 70 05/30/24 12:45 Respiratory Rate 18 05/30/24 12:45 Blood Pressure 167/75 H 05/30/24 12:45 Pulse Oximetry 98 05/30/24 12:45 Medical Decision Making MDM Narrative Medical decision making narrative: Patient is a 74-year-old female who presents to the ER with altered mental status. Her son reports his father has been taking care of her at home, but now his father has been hospitalized for the past week. Patient's son reports he has been attempting to care for his mother during this time and he has noticed increased combativeness, aggressiveness, and agitation. Her son reports patient has a history of dementia for the past 5-7 years, but has gotten worse over the last 2 years. Patient's son reports patient needs care 16/11 in with her today placed in a senior living. Reports they went to patient's psychiatrist yesterday and they strongly advised her to come to the ER for placement. Labs Ordered: CBC, CMP, COVID/flu/RSV, urinalysis, troponin, TSH, INR, PTT, CK Imaging Ordered: CT brain, chest x-ray, 12 lead EKG Medications Ordered: 1 L normal saline, Ativan 0.5 mg IV Results: CT brain scan indicates No acute intracranial process. Age-related changes including mild to moderate diffuse volume loss and mild scattered white matter hypoattenuation consistent with chronic small vessel ischemic disease. Her chest x-ray indicates The lungs remain clear with no focal airspace opacities, pulmonary edema, pleural effusion or pneumothorax. The cardiomediastinal silhouette is normal. Mild thoracic spondylosis. Diagnosis: Altered mental status, senior living placement, chronic dementia Consults: Care coordination Patient Education/Shared MDM: Results shared with patient and her family. Patient was given Ativan 0.5mg IV due to agitation, but will not be started on any new medications here in the ER. Her family is adamant that she not return home, as she has no one who can care for her there. odd bundle worker from care coordination came to evaluate patient. She was able to set up respite care for patient and her family. Strict return precautions provided. Patient and her family verbalize understanding and are in agreement with plan. Vital signs stable at time of discharge. All questions answered. Differential Diagnosis Differential Diagnosis: Urinary tract infection, altered mental status, senior living placement, dehydration, chronic dementia Vital Signs Vital Signs: Vital Signs Temperature 36.6 C 05/30/24 09:31 Pulse Rate 68 05/30/24 09:31 Respiratory Rate 16 05/30/24 09:31 Blood Pressure 136/84 05/30/24 09:31 Pulse Oximetry 100 05/30/24 09:31 Temperature 36.6 C 05/30/24 09:31 Pulse Rate 70 05/30/24 12:45 Respiratory Rate 18 05/30/24 12:45 Blood Pressure 167/75 H 05/30/24 12:45 Pulse Oximetry 98 05/30/24 12:45 Lab Data Lab results reviewed: Yes I reviewed the patient's lab results. 05/30/24 10:00 05/30/24 10:00 Labs: Lab Results 05/30/24 05/30/24 05/30/24 Range/Units 09:58 10:00 10:31 WBC 9.0 (4.5-10.0) K/mm3 RBC 4.79 (4.2-5.4) M/mm3 Hgb 13.4 (12.0-15.0) g/dL Hct 41.9 (37.0-47.0) % MCV 87.5 (80-100) fl MCH 28.0 (26-34) pg MCHC 32.0 (32-36) g/dl RDW 14.9 H (11.5-14.5) % Plt Count 276 (150-375) k/mm3 MPV 10.2 (7.4-10.4) fl Immature Gran % (Auto) 0.4 (0-0.5) % Neut % (Auto) 68.1 (45.5-73.1) % Lymph % (Auto) 18.2 L (18.3-44.2) % [place] % (Auto) 5.7 (2.6-8.5) % Eos % (Auto) 6.9 H (0-4.4) % Baso % (Auto) 0.7 (0.2-1.2) % Lymph # (Auto) 1.63 (0.9-3.2) K/mm3 [place] # (Auto) 0.5 (0.1-0.6) K/mm3 Eos # (Auto) 0.6 H (0-0.3) K/mm3 Baso # (Auto) 0.1 (0.0-0.1) K/mm3 Abs Immat Gran (auto) 0.04 H (0.00-0.031) K/mm3 Absolute Neuts (auto) 6.1 (1.3-6.7) K/mm3 Absolute Nucleated RBC 0.000 (0.0-0.012) K/mm3 Nucleated RBC % 0.0 (0.0-0.2) % PT 13.6 (11.1-14.7) Seconds INR 1.0 APTT 25.6 (22.3-36.8) Seconds Sodium 141 (137-145) mmol/L Potassium 3.7 (3.4-5.0) mmol/L Chloride 103 (98-107) mmol/L Carbon Dioxide 28 (22-30) mmol/L Anion Gap 10 (4-12) mmol/L BUN 22 H (7-17) mg/dL Creatinine 0.66 L (0.7-1.0) mg/dL Estim Creat Clear Calc Not Reportable Estimated GFR > 60 (59 - ) Glucose 101 (65-110) mg/dL POC Capillary Glucose 89 (65-105) mg/dl Calcium 9.8 (8.4-10.2) mg/dL Total Bilirubin 0.8 (0.2-1.3) mg/dL AST 21 (14-36) U/L ALT 19 (6-35) U/L Alkaline Phosphatase 116 (38-126) U/L Total Creatine Kinase 36 (30-135) U/L Troponin I < 0.012 (0.000-0.034) ng/mL Total Protein 8.0 (6.3-8.2) g/dL Albumin 4.3 (3.5-5.1) g/dL TSH 0.443 L (0.465-4.680) uIU/mL Urine Color Yellow (Yellow) Urine Appearance Clear (Clear) Urine pH 7.5 (5.0-9.0) Ur Specific [place] 1.014 (1.001-1.035) Urine Protein Negative (Negative) mg/dL Urine Glucose (UA) Negative (Negative) mg/dL Urine Ketones Negative (Negative) mg/dL Ur Blood (Man) Negative (Negative) Urine Nitrate Negative (Negative) Urine Bilirubin Negative (Negative) Urine Urobilinogen 1.0 (<2.0) mg/dL Leukocyte Esterase Rfl Negative (Negative) HU/UL Urine Opiates Screen Negative (Negative) Urine Methadone Screen Negative (Negative) Ur Barbiturates Screen Negative (Negative) Ur Phencyclidine Scrn Negative (Negative) Ur Amphetamine Screen Negative (Negative) U Benzodiazepines Scrn Negative (Negative) Urine Cocaine Screen Negative (Negative) U Cannabinoids Screen Negative (Negative) Influenza A (RT-PCR) Negative (Negative) Influenza B (RT-PCR) Negative (Negative) RSV (RT-PCR) Negative (Negative) SARS-CoV-2 RNA (RT-PCR) Negative (Negative) Imaging Data Attestation: I personally reviewed and interpreted this imaging study as follows: Radiologist's impression: Impressions Head CT 05/30/24 11:04 IMPRESSION: 1. No acute intracranial process. 2. Age-related changes including mild to moderate diffuse volume loss and mild scattered white matter hypoattenuation consistent with chronic small vessel ischemic disease. Chest X-Ray 05/30/24 11:16 IMPRESSION: 1. No acute cardiopulmonary disease. Discharge Plan Discharge Clinical Impression: Dementia with agitation, Care requires communication through caregiver Patient Disposition: Home, Self-Care Condition: Stable Instructions: Antibiotic Form Additional Instructions: Please return to the ER with an worsening symptoms. Follow-up with primary care provider as soon as possible. Take all regularly scheduled medications as prescribed. Patient Language: Botswanan Prescriptions: No Action memantine 10 mg tablet 10 mg PO BID melatonin 10 mg Tablet 10 mg PO HS PRN (Reason: Insomnia) Follow-up/Referrals: Jolene,Deangelo Coelho DO [Primary Care Provider] - Time of Disposition: 14:31
--- OUTSIDE RECORDS SUMMARY | 2024-05-30 10:01 | XMS_ITS | Clinical Summary ---
Author Organization [facility] Address [address] Attn: Epic Prelude ADT HALIE VAUGHN [address] Care Team Providers Care Leave Coordinator Name Role Phone Unavailable Primary Care Provider Unavailabl e Social History Tobacco Use Types Packs/Day Years Used Date Smoking Tobacco: Never Assessed Comments Unknown Sex and Gender Information Value Date Recorded Sex Assigned at Not on file Legal Sex Female 4:07 AM [place] Gender Identity Not on file Sexual Orientation Not on file Plan of Treatment Health Maintenance Due Date Last Done Comments DTAP/TDAP/TD VACCINES (1 - Tdap) 1967 PNEUMOCOCCAL VACCINE 65+ YEARS (1 of 1 - PCV) 03/17/19 98 ZOSTER VACCINE (1 of 2) 1998 OSTEOPOROSIS SCREENING 2013 RSV VACCINE (60+ or ) (1 - 1-dose 75+ series) 2023 INFLUENZA VACCINE (#1) 2023
--- OUTSIDE RECORDS SUMMARY | 2024-05-30 10:01 | XMS_ITS | Encounter Summary ---
Author Organization [employer] Address 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
[2024-05-30 10:05] VITALS: BP 141/71; PULSE 66; RESP 16; O2SAT 99
[2024-05-30 10:05] LABS: Glucose Point of Care 89 mg/dl (65-105)
[2024-05-30 10:09] LABS: Basophils Absolute Auto 0.1 K/mm3 (0.0-0.1); Basophils Percent Auto 0.7 % (0.2-1.2); Eosinophils Absolute Auto 0.6 K/mm3 (0-0.3); Eosinophils Percent Auto 6.9 % (0-4.4); Hematocrit 41.9 % (37.0-47.0); Hemoglobin 13.4 g/dL (12.0-15.0); Immature Granulocyte Absolute 0.04 K/mm3 (0.00-0.031); Immature Granulocyte Percent A 0.4 % (0-0.5); Lymphocytes Absolute Auto 1.63 K/mm3 (0.9-3.2); Lymphocytes Percent Auto 18.2 % (18.3-44.2); Mean Corpuscular Volume 87.5 fl (80-100); Mean Platelet Volume 10.2 fl (7.4-10.4); Monocytes Absolute Auto 0.5 K/mm3 (0.1-0.6); Monocytes Percent Auto 5.7 % (2.6-8.5); Neutrophils Absolute Auto 6.1 K/mm3 (1.3-6.7); Neutrophils Percent Auto 68.1 % (45.5-73.1); Platelet Count Result 276 k/mm3 (150-375); Red Blood Count 4.79 M/mm3 (4.2-5.4); Red Cell Distribution Width 14.9 % (11.5-14.5)
[2024-05-30] MEDS: SODIUM CHLORIDE 0.9% IV 1,000 ML 999 ML IV CONT (10:13)
[2024-05-30 10:20] LABS: Alanine Aminotransferase 19 U/L (6-35); Albumin Level 4.3 g/dL (3.5-5.1); Alkaline Phosphatase 116 U/L (38-126); Anion Gap 10 mmol/L (4-12); Aspartate Amino Transferase 21 U/L (14-36); Bilirubin,Total 0.8 mg/dL (0.2-1.3); Blood Urea Nitrogen 22 mg/dL (7-17); Calcium 9.8 mg/dL (8.4-10.2); Carbon Dioxide 28 mmol/L (22-30); Chloride 103 mmol/L (98-107); Creatine Kinase 36 U/L (30-135); Estimated Glomerular Filt Rate > 60; Glucose 101 mg/dL (65-110); Potassium 3.7 mmol/L (3.4-5.0); Sodium 141 mmol/L (137-145)
[2024-05-30 10:21] LABS: Prothrombin Time 13.6 Seconds (11.1-14.7)
--- OUTSIDE RECORDS SUMMARY | 2024-05-30 10:21 | XMS_ITS | Encounter Summary ---
Author Organization [facility] [employer] [facility] [employer] Address 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
[2024-05-30 10:23] LABS: Partial Thromboplastin Time 25.6 Seconds (22.3-36.8)
[2024-05-30 10:32] LABS: Troponin I < 0.012 ng/mL (0.000-0.034)
[2024-05-30] MEDS: LORazepam INJ (*CRX) 2 MG/ML VIAL 0.5 MG IV PUSH (10:41)
[2024-05-30 10:43] LABS: Influenza A QL RT-PCR Negative (Negative); Influenza B QL RT-PCR Negative (Negative); RSV RNA, RT-PCR Negative (Negative); SARS-CoV-2 RNA PCR Negative (Negative)
[2024-05-30 10:44] LABS: Add Urine Microscopic? NO; Appearance Urine Clear (Clear); Bilirubin Urine Negative (Negative); Blood Urine Negative (Negative); Color Urine Yellow (Yellow); Glucose Urine UA Negative (Negative); Ketones Urine Negative (Negative); Leukocyte Esterase Ur Negative LEU/UL (Negative); Nitrate Urine Negative (Negative); Protein Urine Negative (Negative); Specific Grav Ur 1.014 (1.001-1.035); pH Urine 7.5 (5.0-9.0)
[2024-05-30 10:51] LABS: Thyroid Stimulating Hormone 0.443 uIU/mL (0.465-4.680)
[2024-05-30 11:14] LABS: Barbiturate Screen Urine Negative (Negative); Benzodiazepines Screen Urine Negative (Negative)
[2024-05-30 11:39] LABS: Cannabinoid Screen Urine Negative (Negative); Cocaine Screen Urine Negative (Negative); Methadone Screen Urine Negative (Negative); Opiate Screen Urine Negative (Negative); Phencyclidine Screen Urine Negative (Negative)
[2024-05-30 11:52] LABS: Amphetamine Screen Urine Negative (Negative)
[2024-05-30 12:30] VITALS: BP 152/73; PULSE 73; RESP 16; O2SAT 97
[2024-05-30 12:45] VITALS: BP 167/75; PULSE 70; RESP 18; O2SAT 98
--- NOTE | 2024-05-30 14:59 | PC.NURSE ---
attempted to call report to Mek[facility] Hilario with no answer. voice mail was left and informed the facility of the number to call back with any questions
--- NOTE | 2024-05-30 15:13 | PC.NURSE ---
Eliane called back at this time for report and report was given
--- NOTE | 2024-05-30 15:14 | PCCCNOTE ---
Called to the ED to help with placement of pt. Pt son Teo was at bedside. The decision was made to send the pt to [facility] in [place] for respite care until finances could be figured out for [facility] care. All pts information was faxed to the facility and facility accepted pt. Jazmyn diez [facility] was here speaking to the son and transported pt to the facility.
== END 2024-05-30 14:54 ==
PROVIDERS: Emergency Provider Registered Nurse; PCP Internal Medicine
DX: F03.911 Unspecified dementia, unspecified severity, with agitation (principal); Z11.52 Encounter for screening for COVID-19; I10 Essential (primary) hypertension; K21.9 Gastro-esophageal reflux disease without esophagitis; E78.5 Hyperlipidemia, unspecified; G47.33 Obstructive sleep apnea (adult) (pediatric); Z79.899 Other long term (current) drug therapy; R94.31 Abnormal electrocardiogram [ECG] [EKG]
CPT/HCPCS: 36415; 70450; 71046; 80053; 80307; 81003; 82550; 82948; 84443; 84484; 85025; 85610; 85730; 87637; 93005; 96361; 96374; 99284; J2060; J7030

== ENCOUNTER 2024-06-12 05:09 | Emergency (ER) | payer MEDICARE, SELFPAY ==
--- NOTE | ~2024-06-12 | CT_ITS ---
CT head without contrast Indication: Status post fall COMPARISON: 05/30/2024 Technique: Serial scans were obtained through the brain without the administration of contrast. Dose reduction technique was used on this scan by utilizing automated exposure control and iterative recon struction technique. The dose-length product (DLP) was 1513.33 mGy-cm. Findings: There is no evidence of intracranial hemorrhage, mass lesion, or acute infarct. The ventri cles and subarachnoid spaces are dilated, consistent with mild atrophy. There is no evidence of prachi ma, mass effect or midline shift. The visualized paranasal sinuses and mastoid air cells are clear. Impression: No intracranial hemorrhage, mass, or acute infarct. Mild generalized atrophy. Reviewed, dictated and finalized at location . NE HEALER Impression: No intracranial hemorrhage, mass, or acute infarct. Mild generalized atrophy.
--- NOTE | ~2024-06-12 | CT_ITS ---
Noncontrast CT scan of the cervical spine Technique: Multiple contiguous axial [address] images of the cervical spine were obtained and rec onstructed in 2D sagittal and coronal planes on the acquisition scanner. Dose reduction technique was used on this scan by utilizing automated exposure control, adjustment of the mA and/or kV according to patient size. The dose-length product (DLP) was 171.12 mGy-cm. Clinical History: Pain Findings: No acute fracture. There is grade 1 anterolisthesis of C4 over C5. There is moderate to adv anced degenerative disc narrowing at C5-C6 and C6-C7. There is right facet arthropathy at C2-C3, righ t neural foraminal narrowing. There is mild bilateral neural foraminal narrowing at C3-C4, with proba ble left facet arthropathy in particular. There is severe right neural foraminal narrowing at C4-C5 w ith prominent right facet arthropathy. There is bilateral neural foraminal narrowing, right worse murray n left, at C5-C6, facet arthropathy and mild disc osteophyte complex. There is mild disc osteophyte c omplex at C6-C7. No prevertebral soft tissue swelling. Impression: No acute fracture. Grade 1 anterolisthesis of C4-C5. Moderate degenerative spondylitic changes, as above. Reviewed, dictated and finalized at [facility]. TAL CAMPAIGN FUNDRAISER Impression: No acute fracture. Grade 1 anterolisthesis of C4-C5. Moderate degenerative spondylitic changes, as above.
[2024-06-12 05:09] VITALS: BP 174/89; PULSE 87; RESP 16; TEMP 36.6; O2SAT 99
[2024-06-12 07:17] VITALS: BP 181/87; PULSE 87; RESP 18; O2SAT 97
--- OUTSIDE RECORDS SUMMARY | 2024-06-12 07:35 | XMS_ITS | Encounter Summary ---
Author Organization [employer] Address [address] [place] [address] Care Team Providers Care Char Belt Operator Name Role Phone Unavailable Primary Care Provider [...] on file Legal Sex Female 4:07 AM SAWYER HELPER Gender Identity Not on file Sexual Orientation Not on file documented as of this encounter Plan of Treatment Not on file documented as of this encounter Visit Diagnoses Diagnosis Acute bronchitis- Primary documented in this encounter
--- OUTSIDE RECORDS SUMMARY | 2024-06-12 07:35 | XMS_ITS ---
Author Organization [facility] [employer] [facility] Address [facility] [address] [facility] [address] [place] [address] Care Team Providers Care Clinical Informatics Physician Name Role Phone Umesh Ashraf Unavailable [phone] REASON FOR VISIT Benefit Social History Sex Assigned At : Social History Observation Description Sex Assigned At Female Encounters Encounter Location Date Provider Diagnosis [facility] [address] [place] [id number] [facility] [address] [facility] [address] [place] [address] 06/01/2024 Umesh Ashraf Plan Of Treatment Next Appt Details Provider Name:Umesh gray, 06/19/2024 02:00:00 PM, [address], [facility] [address], [place], [address], Progress Notes * HOPE GLEASON FDOB:1950 (74 yo F)Acc No.[id number]:06/01/2024 Patient: Sherita HOPE MCCARTHY :1950 A ge:74 Y S ex:Female Address:[address] [place], [address] * true * Date: Generated for Mervini jonathan/Fakahlilg/eTransmitting on: 0 06/12/2024 07:34 AM CONSOLIDATOR
--- OUTSIDE RECORDS SUMMARY | 2024-06-12 07:35 | XMS_ITS | Clinical Summary ---
Author Organization [facility] Address [address] [facility] Attn: Epic Prelude ADT [place] [address] Care Team Providers Care Well Driller Name Role Phone Unavailable Primary Care Provider Unavailabl e Social History Tobacco Use Types Packs/Day Years Used Date Smoking Tobacco: Never Assessed Comments Unknown Sex and Gender Information Value Date Recorded Sex Assigned at Not on file Legal Sex Female 4:07 AM SOCIETY EDITOR Gender Identity Not on file Sexual Orientation [...]
--- OUTSIDE RECORDS SUMMARY | 2024-06-12 07:35 | XMS_ITS | Patient Health Record ---
Author Organization [facility] [employer] Address [address] [place] [address] Care Team Providers Care Caltrans Equipment Operator Name Role Phone Umesh Ashraf Unavailable [phone] Migration, Provider Unavailable Unavailable Steve Asif Unavailable [phone] Allergies No Known Allergies Reason For Referral No Information Medications Medication SIG (Take, Route, Frequency, Duration) Notes Start Date End Date Status Sertraline HCl 100 MG 1 tablet by mouth Once a day for 90 days Active QUEtiapine Fumarate 25 MG TAKE 1 TABLET BY MOUTH TWICE DAILY for 30 Not-Taking LORazepam 0.5 MG Oral 04/27/2023 No t-Taking Rexulti 2 mg Oral 04/27/2023 Not-Ta xin Atenolol 100 MG Oral 04/27/2023 Not -Taking Omeprazole 20 MG Oral 04/27/2023 No t-Taking Rosuvastatin Calcium 20 MG Oral 04/27/2023 Not-Taking Memantine HCl 10 MG 1 tablet Oral twice a day 04/27/2023 Active Social History Sex Assigned At : Social History Observation Description Sex Assigned At Female Problems Problem Type SNOMED Code ICD Code Onset Dates Problem Status W/U Status Risk Notes Problem Severe recurrent major depression without psychotic features (90529814) Major depressive disorder, recurrent severe without psychotic features (F33.2) Active confirmed Problem Generalized anxiety disorder (00142384) Generalized anxiety disorder (F41.1) 04/27/19 24 Active confirmed Problem Dementia in othe r diseases classified elsewhere, unspecified severity, with agitation (F02.811) 04/27/19 24 Active confirmed Problem Frontotemporal dementia (250206749) Other frontotemporal dementia (G31.09) 04/27/19 Active confirmed Vital Signs Heart Rate 65 /min 05/30/2024 Height-cm 165.10 cm 05/30/2024 Blood pressure diastolic 93 mm Hg 05/30/2024 Weight-kg 49.71 kg 05/30/2024 Height 65.00 in 05/30/2024 Blood pressure systolic 150 mm Hg 05/30/2024 Weight 109.6 lbs 05/30/2024 BMI 18.24 kg/m2 05/30/2024 Encounters Encounter Location Date Provider Diagnosis [facility] [employer] [facility], [address] [place] [address] 05/30/2024 Steve Asif Major depressive disorder, recurrent severe without psychotic features F33.2 ; Dementia in other diseases classified elsewhere, unspecified severity, with agitation F02.811 ; Other frontotemporal dementia G31.09 and Generalized anxiety disorder F41.1 [facility] [address] [address] 09/11/2023 Provider Migration [facility] [employer] [facility] [address] [address] 09/12/2023 Provider Migration [facility] [employer] [facility] [address] [address] 12/07/2023 Umesh Ashraf Dementia in other diseases classified elsewhere, unspecified severity, with agitation F02.811 [facility] [address] [address] 01/28/2024 Umesh Ashraf Major depressive disorder, recurrent severe without psychotic features F33.2 [facility] [employer] [facility] [address] [address] 05/30/2024 Umesh Ashraf [facility] [address] [place] [address] 06/01/2024 Umesh Ashraf [facility] [employer] [facility] [address] [address] 06/08/2024 Umesh Ashraf Assessments Encounter Date Diagnosis (ICD Code) Assessment Notes Treatment Notes Treatment Clinical Notes Section Notes 12/07/2023 Dementia in other diseases classified elsewhere, unspecified severity, with agitation (ICD-10 - F02.811) 05/30/2024 Major depressive disorder, recurrent severe without psychotic features (ICD-10 - F33.2) 05/30/2024 Dementia in other diseases classified elsewhere, unspecified severity, with agitation (ICD-10 - F02.811) 01/28/2024 Major depressive disorder, recurrent severe without psychotic features (ICD-10 - F33.2) 05/30/2024 Other frontotemporal dementia (ICD-10 - G31.09) 05/30/2024 Generalized anxiety disorder (ICD-10 - F41.1) 05/30/2024 Other Learning About Depression Screening material was printed Notes: referral to the local chapter or national office of the Alzheimer's Association ( ; http://www.alz. org), the Alzheimer's Disease Education and Referral Center (ADESC) ( ; http://www.reed. nih.gov/Alzheim ers/), Assessment and plan reviewed with patient Call for problems with medication, side effects or need for dosage change Compliance issues reviewed Discussed the risks/benefits of this medication Discussed medication side effects Return if symptoms worsen Treatment options reviewed. discussed that it can take weeks to see full therapeutic effects of psychotropic medications. discussed when to seek emergency services. discussed crisis prevention hotline 754. Notes: referral to the local chapter or national office of the Alzheimer's Association ( ; http://www.alz. org), the Alzheimer's Disease Education and Referral Center (ADEAR) ( ; http://www.reed. nih.gov/Alzheim ers/), 1. Dementia - Continue sertraline and memantine as prescribed. - Discontinue quetiapine due to inappropriateness for dementia. - Consider alternative medications for behavioral management if needed. - Assess for any reversible causes of cognitive decline. - Note: Patient exhibits significant cognitive impairment, unable to complete basic cognitive tests. plan: - take to emergency room for medical clearance and for resources r/t caregiver roll strain. 2. Suspected Urinary Tract Infection - Obtain urinalysis and urine culture. - Initiate empiric antibiotic therapy if indicated. - Monitor for improvement in symptoms and adjust treatment as needed. - Note: Patient has history of soiling herself, son suspects infection. plan: - take to emergency room for medical clearance and for resources r/t caregiver roll strain. 3. Hypertension - Monitor blood pressure regularly. - Assess for possible anxiety contributing to elevated blood pressure. - Consider initiating or adjusting antihypertensive medications if needed. - Note: Blood pressure reported as a little high today . plan: - take to emergency room for medical clearance and for resources r/t caregiver roll strain. 4. Possible Placement in Half-Way Facility or Memory Care Unit - Consult with case management and patient advocate for assistance in placement. - Evaluate patient's eligibility for in-home care services specializing in dementia. - Note: Family is struggling to provide care at home, patient requires constant supervision. 5. General Health and Medication Management - Schedule follow-up appointment with primary care physician, Dr. Aleksandr Trujillo at [place]. - Review and update medication list, including rosuvastatin for cholesterol management. - Ensure patient has no known allergies to food or drugs. - Note: Patient recently switched primary care providers from Dr. Askew to Dr. Trujillo. 6. Code Status - Confirm patient's code status as full code, no DNR in place. 7. Psychosocial Support - Encourage family to be persistent in seeking help and resources for the patient. - Assess patient's mental health and risk for self-harm regularly. - Note: Son is primary caregiver and is experiencing significant stress, father currently hospitalized. Plan Of Treatment Next Appt Details Provider Name:Umesh gray, 06/19/2024 02:00:00 PM, [address], [address], [place], [address], Insurance Providers Payer Name Payer Address Payer Phone Subscriber Number Group Number Insured Name Patient Relationship to Insured Coverage Start Date Coverage End Date [employer] Medicare Replacement/ Advantage - Hmo [address] [address] [place] [address] [id number] HOPE GLEASON Self - patient is the insured Medical (General) History Medical History History ICD Code Problems: Agitation due to dementia Frontotemporal dementia Generalized anxiety disorder Mixed dementia Persistent insomnia Severe recurrent major depression withou t psychotic features , Surgical History Surgery Date(Month/Year) Cataract surgery (615446269) delivery (89818) Hysterectomy (40894) 12/02/1980
--- OUTSIDE RECORDS SUMMARY | 2024-06-12 07:35 | XMS_ITS ---
Author Organization [facility] [employer] [facility] Address [facility] [facility] [address] [facility] [address] [place] [address] Care Team Providers Care Hydrogenation Still Operator Name Role Phone Umesh Ashraf Unavailable [phone] REASON FOR VISIT urgent paperwork Social History Sex Assigned At : Social History Observation Description Sex Assigned At Female Encounters Encounter Location Date Provider Diagnosis [facility] [place] [address] [facility] [address] [facility] [address] [place] [address] 06/08/2024 Umesh Ashraf Plan Of Treatment Next Appt Details Provider Name:Umesh gray, 06/19/2024 02:00:00 PM, [address], [facility] [address], [place], [address], Progress Notes * HOPE GLEASON FDOB:1950 (74 yo F)Acc No.[id number]:06/08/2024 Patient: Sherita HOPE MCCARTHY :1950 A ge:74 Y S ex:Female [address] [place], [address] * true * Date: Generated for Nicky castillo/Toshia/eTransmitting on: 0 06/12/2024 07:35 AM CLINICAL SERVICES MANAGER
--- OUTSIDE RECORDS SUMMARY | 2024-06-12 07:35 | XMS_ITS ---
Author Organization [facility] [employer] [facility] Address [address] [facility] [address] [place] [address] Care Team Providers Care Radio Station Manager Name Role Phone Umesh Ashraf Unavailable [phone] REASON FOR VISIT Waiting for call back Social History Sex Assigned At : Social History Observation Description Sex Assigned At Female Encounters Encounter Location Date Provider Diagnosis [facility] [employer] [facility] [address] [facility] [address] [place] [address] 05/30/2024 Umesh Ashraf Plan Of Treatment Next Appt Details Provider Name:Umesh gray, 06/19/2024 02:00:00 PM, [address], [facility] [address], [place], [address], Progress Notes * HOPE GLEASON FDOB:1950 (74 yo F)Acc No.[id number]:05/30/2024 Patient: Sherita FABIONANCYHY Luna :1950 A ge:74 Y S ex:Female Address:[address] [place], [address] * true * Date: Generated for Nicky castillo/Toshia/eTransmitting on: 0 06/12/2024 07:35 AM MIXING ENGINEER
--- NOTE | 2024-06-12 07:38 | PC.NURSE ---
0715: Assumed care of pt. Pt in hallway with son. Pt assisted back to room incontinent of urine, sara care given. Fall precautions initiated.
--- NOTE | 2024-06-12 08:22 | ED.FALL ---
HPI - Fall General Chief Complaint: Fall Stated Complaint: FOREHEAD LAC S/P FALL Time Seen by Provider: 06/12/24 07:04 History of Present Illness HPI Narrative: Patient is a 74-year-old female who presents ER after having a fall. Occurred at her care facility. Unknown LOC. No blood thinning medications. 2 cm laceration to the forehead. Patient unable to provide history due to advanced dementia. Unknown last tetanus shot. Related Data Home Medications ?Medication ?Instructions ?Recorded ?Confirmed ?Last Taken ?Type memantine 10 mg tablet 10 mg PO BID 02/24/23 04/03/24 Unknown History melatonin 10 mg tablet 10 mg PO HS PRN Insomnia 04/03/24 04/03/24 Unknown History Allergies Allergy/AdvReac Type Severity Reaction Status Date / Time No Known Allergies Allergy Verified 06/12/24 05:17 Review of Systems Review of Systems: ROS unobtainable: Yes unobtainable due to mental status PMFSH Past Medical History Medical History Hypertension Gastroesophageal reflux disease Screening mammogram, encounter for Dementia Obstructive sleep apnea (01/2020) Hyperlipidemia Anxiety Verruca vulgaris right forearm Surgical History Surgical History History of neck surgery (~01/2005) gland removed History of endometrial biopsy (03/27/04) hscope emb History of stress incontinence procedure using tension free vaginal tape (~2001) History of section (~1980) Family History Family History Father Cerebrovascular accident Hypertension Mother Family history of chronic obstructive pulmonary disease Heart disease Sibling Patient's sister is Social History Social History Social History: Surrogate medical decision maker: Jaylan Mitchell, spouse. Code status: Full code. Smoking status: Never smoker Second hand tobacco smoke exposure: No Alcohol intake: never Drinks per week: 1 Substance use: never Substance use type: does not use Living arrangements: with family Additional living arrangements comments: The patient lives with her and their floyd retriever in [place]. Occupation/Education: retired Spiritual care concerns: No Exam Narrative: GENERAL: Anxious-appearing, well-nourished, and in no acute distress. HEAD: Normocephalic, 2 cm linear laceration to the middle forehead. EYES: PERRL and EOMI. ENT: Mucous membranes moist. CHEST: Clear to auscultation. No respiratory distress. HEART: Regular rate and rhythm. Normal peripheral pulses. EXTREMITIES: Normal range of motion. No edema. SKIN: Warm, dry, no rash. NEURO: Alert and oriented to self. Ambulates with a steady gait. Course Course Emergency Course: Wound repaired. Imaging without fracture or intracranial injury. Tetanus updated. Appropriate for discharge home. Vital Signs Vital signs: Vital Signs Temperature 97.9 F 06/12/24 05:09 Pulse Rate 87 06/12/24 05:09 Respiratory Rate 16 06/12/24 05:09 Blood Pressure 174/89 H 06/12/24 05:09 Pulse Oximetry 99 06/12/24 05:09 Oxygen Delivery Room Air 06/12/24 05:09 Temperature 97.9 F 06/12/24 05:09 Pulse Rate 87 06/12/24 07:17 Respiratory Rate 18 06/12/24 07:17 Blood Pressure 181/87 H 06/12/24 07:17 Pulse Oximetry 97 06/12/24 07:17 Oxygen Delivery Room Air 06/12/24 05:09 Procedures Laceration Laceration 1: Date: 06/12/24 Time: 08:22 Site: face (forehead) Size (cm): 2 Description: linear and clean Depth: simple, single layer Local Anesthetic: lidocaine 1% and with epi Amount of anesthesia used (mL): 3 Pre-repair: wound explored and irrigated ====== Skin Level ====== Skin layer closed with: nylon Size (cm): 5-0 Number of sutures: 4 Technique: simple, interrupted ====== Subcutaneous Layer ====== ====== Muscle Layer ====== ====== Tendon Layer ====== MDM - Fall Imaging Data Radiologist's impression: ITS Impressions Cervical Spine CT 06/12/24 07:20 Impression: No acute fracture. Grade 1 anterolisthesis of C4-C5. Moderate degenerative spondylitic changes, as above. Head CT 06/12/24 07:20 Impression: No intracranial hemorrhage, mass, or acute infarct. Mild generalized atrophy. Discharge Plan Discharge Clinical Impression: Laceration of forehead Patient Disposition: Home, Self-Care Condition: Stable Instructions: Care For Your Stitches (ED), Laceration (ED) Additional Instructions: You can remove her sutures in 5 days. Return to the ER if the wound is infected, draining pus, or you have additional concerns. Patient Language: Samoan Prescriptions: No Action memantine 10 mg tablet 10 mg PO BID melatonin 10 mg Tablet 10 mg PO HS PRN (Reason: Insomnia) Follow-up/Referrals: Aleksandr Trujillo APRN [Primary Care Provider] - 1 Week
[2024-06-12] MEDS: TETANUS,DIPHTHERIA,AC PERTUSSIS ADULT (0.5 ML) BOOSTRIX IM (08:46)
[2024-06-12] MEDS: LIDO 1%/EPINEPHRINE 1:100,000 20 ML VIAL 4 ML INFILTRATE (08:47)
--- NOTE | 2024-06-12 08:56 | PC.NURSE ---
0830: Laceration repaired by Dr. Cordova, pt tolerated fair.
--- NOTE | 2024-06-12 08:57 | PC.NURSE ---
Pt son & sister at bedside. Sister comfortable with taking pt back to facility. Pt dressed assisted to w/c. Sutures & gauze dressing intact
== END 2024-06-12 08:58 | disposition home or self-care (01) ==
PROVIDERS: Emergency Provider Emergency Medicine; PCP Nurse Practitioner
DX: S01.81XA Laceration without foreign body of other part of head, initial encounter (principal); I10 Essential (primary) hypertension; K21.9 Gastro-esophageal reflux disease without esophagitis; F03.90 Unspecified dementia, unspecified severity, without behavioral disturbance, psychotic disturbance, mood disturbance, and anxiety; G47.30 Sleep apnea, unspecified; E78.5 Hyperlipidemia, unspecified; F41.9 Anxiety disorder, unspecified; W19.XXXA Unspecified fall, initial encounter; Z23 Encounter for immunization
CPT/HCPCS: 12011; 70450; 72125; 90471; 90715; 99284; J2004